=== PATIENT | male | born 1960 | race Caucasian/White ===

== ENCOUNTER 2022-10-26 06:25 | Emergency (ER) | payer OTHER ==
[~2022-10-26] VITALS: Ht 172.7 cm; Wt 77.1 kg
[~2022-10-26 06:25] MED LIST: CLORAZEPATE D3.75 MG PO; IMBRUVICA280 MG PO; RESTORA CAPSUL1 EACH; TAMS0.4C PO; VISTARIL50 MG PO
== END 2022-10-26 07:37 | disposition home or self-care (01) ==
LOC: ER 06:25
DX: M13.0 Polyarthritis, unspecified (principal)
CPT/HCPCS: 96372; 99283; J1100; J1885

== ENCOUNTER 2023-02-21 05:16 | Emergency (ER) | payer OTHER ==
[~2023-02-21] VITALS: Ht 172.7 cm; Wt 77.1 kg
[2023-02-21] MEDS ORDERED: RITUXAN HY1400 MG/11 (05:28)
[2023-02-21] MEDS ORDERED: DOXEPIN HCL3 MG (05:29)
[2023-02-21] MEDS ORDERED: RESTORIL7.5 MG PO (05:29)
[2023-02-21] MEDS ORDERED: NORFLEX100MG PO ×2 (07:02→07:06)
[2023-02-21] MEDS ORDERED: NABUMETONE750 MG PO ×2 (07:02→07:06)
== END 2023-02-21 08:14 ==
LOC: ER 05:16
DX: S39.012A Strain of muscle, fascia and tendon of lower back, initial encounter (principal); Z85.89 Personal history of malignant neoplasm of other organs and systems
CPT/HCPCS: 96372; 99284; J1885; J2360

== ENCOUNTER 2024-03-20 05:04 | Emergency (ER) | payer OTHER ==
[~2024-03-20] VITALS: Ht 172.7 cm; Wt 79.4 kg
[~2024-03-20 05:04] MED LIST changes: +DOXEPIN HCL3 MG; +NABUMETONE750 MG PO; +NORFLEX100MG PO; +RESTORIL7.5 MG PO; +RITUXAN HY1400 MG/11
[2024-03-20] MEDS ORDERED: RESTORIL30 M1 PO (05:16)
[2024-03-20] MEDS ORDERED: AUGMENTIN125 MG/5 M PO (05:27)
[2024-03-20] MEDS ORDERED: TETANUS & DIPHTHERIA TOX,ADULT 0.5 ML VIAL IM STA (07:19)
[2024-03-20] MEDS ORDERED: CEFAZOLIN SODIUM 1,000 MG VIAL IM STA (07:20)
[2024-03-20] MEDS ORDERED: LIDOCAINE HCL 1% 10ML VIAL ONE (07:27)
[2024-03-20] MEDS ORDERED: CEFAZOLIN SODIUM 1,000 MG VIAL ONE (07:48)
[2024-03-20] MEDS ORDERED: TETANUS DIPHTHERIA TOX. ADSOR 5 ML VIAL IM ONE (07:48)
== END 2024-03-20 08:01 | disposition home or self-care (01) ==
LOC: ER 05:07
DX: S81.821A Laceration with foreign body, right lower leg, initial encounter (principal); W25.XXXA Contact with sharp glass, initial encounter; Y93.89 Activity, other specified; Y92.018 Other place in single-family (private) house as the place of occurrence of the external cause
CPT/HCPCS: 12002; 90471; 90714; 96372; 99282; J0690